=== PATIENT | female | born 1940 | race Caucasian/White ===

== ENCOUNTER 2024-08-29 15:18 | Emergency (ER) | payer MEDICARE | END 2024-08-29 16:04 | disposition home or self-care (01) | LOC: BURERS 15:18 | DX: L97.919 Non-pressure chronic ulcer of unspecified part of right lower leg with unspecified severity (principal); I87.8 Other specified disorders of veins; I10 Essential (primary) hypertension; Z79.82 Long term (current) use of aspirin; Z79.899 Other long term (current) drug therapy | CPT/HCPCS: 99283 ==